=== PATIENT | female | born 1975 | race African-American/Black ===

== ENCOUNTER 2025-01-15 11:29 | Outpatient (AMB) | payer OTHER, SELFPAY ==
--- OUTSIDE RECORDS SUMMARY | 2025-01-12 10:40 | XMS_ITS | Encounter Summary ---
Author Organization [facility] Address [address] [place] [address] Phone Care Team Providers Care Design Technician Name Role Phone Andrés Morales Primary Care Provider + Reason for Visit * Reason Comments Follow-up Encounter Details Date Type Department Care Team (Latest Contact Info) Description 01/12/2025 10:40 AM EDT Office Visit [facility] [address] [place] [phone] Nela Connors MD [address] [place] [phone] [email or web address] Thyroid cancer (Primary Dx); Postoperative hypothyroidism Social History Tobacco Use Types Packs/Day Years Used Date Smoking Tobacco: Never Passive Smoke Exposure: Past Smokeless Tobacco: Never Alcohol Use Standard Drinks/Week Comments Not Currently 0 (1 standard drink = 0.6 oz pur e alcohol) Education Answer Date Recorded Are you interested in more education? Not on monika e 07/28/2022 Are you concerned about learning? Not on file 07/28/2022 No 07/28/2022 No 07/28/2022 Digital Access Answer Date Recorded No 08/21/2022 No 08/21/2022 No 08/21/2022 Reliable internet access at home? Not on file 08/21/2022 Device with a working camera? Not on file Comments Unknown Sex and Gender Information Value Date Recorded Sex Assigned at Not on file Legal Sex Female 1:21 PM EST Gender Identity Not on file Sexual Orientation Not on file documented as of this encounter Last Filed Vital Signs Vital Sign Reading Time Taken Comments Blood Pressure 118/72 01/12/2025 10:48 AM EDT Pulse 83 01/12/2025 10:48 AM EDT Temperature - - Respiratory Rate - - Oxygen Saturation 99% 01/12/2025 10:48 AM EDT Inhaled Oxygen Concentration - - Weight 113.9 kg (251 lb) 01/12/2025 10:48 AM EDT Height 160 cm (5' 2.99 ) 01/12/2025 10:48 AM EDT Body Mass Index 44.47 01/12/2025 10:48 AM EDT documented in this encounter Plan of Treatment Upcoming Encounters Date Type Department Care Team (Late st Contact Info) Description 07/21/2025 10:40 AM EDT Office Visit [facility] [address] [place] [address] [place] [address] Nela Connors MD [address] [place] [phone] [email or web address] documented as of this encounter Results * Thyroglobulin, Tumor Marker (01/12/2025 11:51 AM EDT) THYROGLOBULIN 0.2 < or = 33 ng/mL [facility] THYROGLOBULIN AB <1.8 <1.8 IU/mL [facility] THYROGLOBULIN INTRP SEE NOTE [facility] Comment: (NOTE) Thyroglobulin (Tg) reference intervals are for patients with an intact thyroid and not for patients who have had surgery for thyroid cancer. Tg reference intervals in patients that have undergone thyroidectomy or any treatment for follicular thyroid cancer are dependent on the residual mass of the thyroid tissue after surgery. Tg results, regardless of concentration, should not be interpreted as absolute evidence for the presence or absence of papillary or follicular thyroid cancer. This result needs to be interpreted in the context of the clinical evaluation. ADDITIONAL INFORMATION PLEASE NOTE: The given cutoff of <1.8 IU/mL is for the detection of potential thyroglobulin antibody (TgAb) interference in thyroglobulin immunoassays. A thyroglobulin antibody (TgAb) reference cutoff of <4.0 IU/mL may be more suitable for the evaluation of autoimmune thyroiditis. The thyroglobulin and thyroglobulin antibody testing methods are immunoenzymatic assays manufactured by [employer] and performed on the [employer] DXI 800. Values obtained from different assay methods or kits may be different and cannot be used interchangeably. The results cannot be interpreted as absolute evidence for the presence or absence of malignant disease. Blood 01/12/2025 11:5 1 AM EDT 01/12/2025 11:58 AM EDT Nela Connors MD LAB BLOOD ORDERABLES Final Res ult Performing Organization Address [facility] de Phone Number [facility] [address] [place] [address] * Thyroglobulin antibody (01/12/2025 11:51 AM EDT) THYROGLOBULIN ANTIBODY, S <1.8 <4.0 IU/mL [facility] Comment: (NOTE) ADDITIONAL INFORMATION PLEASE NOTE: The given thyroglobulin antibody (TgAb) reference cutoff of <4.0 IU/mL is for the evaluation of autoimmune thyroiditis. A cutoff of <1.8 IU/mL may be more suitable for the detection of potential thyroglobulin antibody (TgAb) interference in thyroglobulin immunoassays. The thyroglobulin antibody testing method is an immunoenzymatic assay manufactured by [employer] and performed on the [employer] DXI 800. Values obtained from different assay methods or kits may be different and cannot be used interchangeably. The results cannot be interpreted as absolute evidence for the presence or absence of malignant disease. Blood 01/12/2025 11:5 1 AM EDT 01/12/2025 11:58 AM EDT Nela Connors MD LAB BLOOD ORDERABLES Final Res ult Performing Organization Address [facility]/State/ZIP Co de Phone Number [facility] [address] [place] [address] * (ABNORMAL) TSH with reflex (01/12/2025 11:51 AM EDT) TSH 0.17(L) 0.27 - 4.20 uIU/mL [facility] Blood 01/12/2025 11:5 1 AM EDT 01/12/2025 11:58 AM EDT us Nela Connors MD LAB BLOOD ORDERABLES Final Res ult [facility] [address] [place] [address] documented in this encounter Visit Diagnoses Diagnosis Thyroid cancer- Primary Malignant neoplasm of thyroid gland Postoperative hypothyroidism Postsurgical hypothyroidism documented in this encounter Care Teams Design Technician Relationship Specialty Start Date End Date Andrés Morales PA [address] [place] [address] [email or web address] PCP - General 06/01/22 documented as of this encounter Additional Source Comments The information contained in this document represents components of the legal health record. It is not the complete legal health record.[facility]
--- OUTSIDE RECORDS SUMMARY | 2025-01-12 11:24 | XMS_ITS | Encounter Summary ---
Author Organization [facility] Address [address] [place] [address] Phone Care Team Providers Care School Secretary Name Role Phone Andrés Morales Primary Care Provider + Encounter Details Date Type Department Care Team (Latest Contact Info) Description 01/12/2025 11:24 AM EDT - 01/12/2025 11:59 PM EDT Hospital Encounter [facility] [address] [place] [address] [place] [address] Nela Connors MD [address] [place] [phone] [email or web address] Discharge Disposition: Home or Self Care Social History Tobacco Use Types Packs/Day Years [...] on file documented as of this encounter Medications at Time of Discharge apixaban (ELIQUIS) 5 mg tablet Take 5 mg by mouth 2 (two) times a day. 01/01/2025 levothyroxine (SYNTHROID, LEVOTHROID) 200 MCG tabletIndications:Po stoperative hypothyroidism TAKE 1 TAB ORALLY 5 DAYS/WEEK, 1/2 TABLET ON SAT/SUN, OR DIRECTED 90 tablet 1 09/25/2024 therapeutic multivitamin tablet Take 1 tablet by mouth daily. documented as of this encounter Plan of Treatment Upcoming Encounters Date Type Department Care Team (Late st Contact Info) Description 07/21/2025 10:40 AM EDT Office Visit [facility] [address] [place] [phone] Nela Connors MD [address] [place] [phone] [email or web address] documented as of this encounter Procedures Procedure Name Priority Date/Time Associated Diagnosis Comments THYROGLOBULIN ANTIBODY Routine 01/12/2025 11:51 AM EDT Thyroid cancer TSH WITH REFLEX Routine 01/12/2025 11:51 AM EDT Postoperative hypothyroidism THYROGLOBULIN, TUMOR MARKER Routine 01/12/2025 11:51 AM EDT Thyroid cancer FREE T4 Routine 01/12/2025 11:51 AM EDT documented in this encounter Results * (ABNORMAL) Free T4 (01/12/2025 11:51 AM EDT) FREE T4 1.9(H) 0.9 - 1.7 ng/dL [facility] 01/12/2025 11:5 1 AM EDT 01/12/2025 11:58 AM EDT us Nela Connors MD LAB BLOOD ORDERABLES Final Res ult [facility] [address] [place] [address] * (ABNORMAL) TSH with reflex (01/12/2025 11:51 AM EDT) TSH 0.17(L) 0.27 - 4.20 uIU/mL [facility] Blood 01/12/2025 11:5 1 AM EDT 01/12/2025 11:58 AM EDT Nela Connors MD LAB BLOOD ORDERABLES Final Res ult Performing Organization Address [facility]/ZIP Co de Phone Number [facility] [address] [place] [address] * Thyroglobulin antibody (01/12/2025 11:51 AM EDT) THYROGLOBULIN ANTIBODY, S <1.8 <4.0 IU/mL [facility] Comment: (NOTE) ADDITIONAL INFORMATION PLEASE NOTE: The given thyroglobulin antibody (TgAb) reference cutoff of <4.0 IU/mL is for the evaluation of autoimmune thyroiditis. A cutoff of <1.8 IU/mL may be more suitable for the detection of potential thyroglobulin antibody (TgAb) interference in thyroglobulin immunoassays. The thyroglobulin antibody testing method is an immunoenzymatic assay manufactured by [employer] and performed on the [employer] DXI 800. Values obtained from different assay methods or kits may be different and cannot be used interchangeably. The results cannot be interpreted as absolute evidence for the presence or absence of malignant disease. Blood 01/12/2025 11:5 1 AM EDT 01/12/2025 11:58 AM EDT Nela Connors MD LAB BLOOD ORDERABLES Final Res ult Performing Organization Address City/[facility]/ZIP Co de Phone Number [facility] [address] [place] [address] * Thyroglobulin, Tumor Marker (01/12/2025 11:51 AM EDT) THYROGLOBULIN 0.2 < or = 33 ng/mL [facility] [place] THYROGLOBULIN AB <1.8 <1.8 IU/mL [facility] [place] THYROGLOBULIN INTRP SEE NOTE [facility] Comment: (NOTE) Thyroglobulin (Tg) [...] testing methods are immunoenzymatic assays manufactured by [employer] and performed on the [employer] DXI 800. Values obtained from different assay methods or kits may be different and cannot be used interchangeably. The results cannot be interpreted as absolute evidence for the presence or absence of malignant disease. Blood 01/12/2025 11:5 1 AM EDT 01/12/2025 11:58 AM EDT us Nela Connors MD LAB BLOOD ORDERABLES Final Res ult [facility] [place] [address] [place] [address] documented in this encounter Visit Diagnoses Diagnosis Thyroid cancer Malignant neoplasm of thyroid gland Postoperative hypothyroidism Postsurgical hypothyroidism documented in this encounter Care Teams School Secretary Relationship Specialty Start Date End Date Andrés Morales PA NPI: [id number] [place] [phone] [email or web address] PCP - General 06/01/22 documented as of this encounter Additional Source Comments The information contained in this document represents components of the legal health record. It is not the complete legal health record.[facility]
--- NOTE | 2025-01-15 11:39 | MHC.OFFVIS ---
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 Patient was referred by [facility] 09/16/24 at their visit they discussed that her lower back pain might be due to obesity. At today's visit she states that for the past five years she has lower back pain that radiates into the right hip. No numbness or tingling to report. She states she has tried physical therapy but little to no relief. Allergies No Known Allergies Allergy (Verified 01/15/25 11:42) Medication List - Last Reconciled 01/15/25 by Lori Cadena MD levothyroxine mcg PO HPI Comments Details: Patient referred from [facility]. She has history of thyroid cancer with local metastasis, diagnosed 2008. Underwent total thyroidectomy and bilateral cervical lymph node dissection. Recurrent disease in 2012 again undergoing bilateral neck dissection. Appears to have been in remission. [facility] notes indicated L5-S1 disease but I do not have records of previous imaging. History of PE, just round last month 12/22/24. Was put on Eliquis for 1 month, now off it. Lumbar x-rays done today showed mild disc space narrowing at L4-5 and L5-S1. Chronic back pain at least 5 years. More right side. Not to legs. No numbness. Has tried medications NSAIDs, muscle relaxors, narcotics. 2 years ago, it did go down right leg with severe pain. Improved with rest. No MRI. No injections. No PT for the back pain. Has a separate right knee pain. Ongoing PT for the knee pain. 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 Review of Systems Const All systems reviewed & are unremarkable except as noted in HPI and below Physical Exam Exam Exam: Constitutional: Patient appears to be in no acute distress, well nourished and well developed. Patient was appropriately conversant and oriented. Good historian. MSK: No specific abnormalities found on inspection of the spine and all extremities. Tender on right SI joint. Lumbar ROM was full. Bilateral hip, knee and ankle ROM WNL. No ligamentous laxity or crepitance. No increased effusion. Straight-leg raising test negative. FABERE test negative. Strength is 5/5 in all muscle groups tested. No increased tone noted. Neurological: Neurologic examination of the upper and lower extremities was nonfocal with intact sensation, muscle stretch reflexes and without focal motor deficits . Farah?s negative bilaterally. Babinski was down going bilaterally. Clonus was negative. Gait is antalgic without loss of balance. Vital Signs: BMI result Body Mass Index 44.3 Results Reviewed Results Reviewed: I independently reviewed the results of the following: Lumbar x-rays as above I reviewed records from the following: PCP Assessment & Plan Assessment & Plan (1) Lumbar degenerative disc disease: Code(s): M51.369 - Other intervertebral disc degeneration, lumbar region without mention of lumbar back pain or lower extremity pain Category: Medical Qualifiers: Disc-related pain type: discogenic back pain and lower extremity pain Qualified Code(s): M51.362 - Other intervertebral disc degeneration, lumbar region with discogenic back pain and lower extremity pain Plan Chronic lower back pain, right-sided, with some radiation down the leg. X-rays today show decreased disc spaces L4-5 and L5-S1. Await official reading. She has not had any other treatment for back pain in the past. We will start with physical therapy. We might need further imaging such as MRI, or in injections in the future, if not improved with PT. Assessment and plan discussed with patient, and patient was agreeable. All questions were answered thoroughly. Follow up 2 months. She has a separate right knee issue, currently undergoing PT. We can schedule her under Orthopedics to evaluate further. Lori Cadena MD, FRANCIA Board Certified, [place] [employer] and Rehabilitation (ABPMR) Board Certified, [place] Board [employer] Electrodiagnostic [employer] (ABEM) Orders: Orders PT Evaluation and Treatment Today M51.369 - Other intervertebral disc degeneration, lumbar region without mention of lumbar back pain or lower extremity pain XR lumbar spine 2-3V Today M54.9 - Dorsalgia, unspecified Coding Level of Care Code New Pt Level 4 (95241) Diagnoses Degeneration of intervertebral disc of lumbar region with discogenic back pain and lower extremity pain M51.362 Disc-related pain type: discogenic back pain and lower extremity pain
[2025-01-15 11:42] VITALS: BMI 44.3
== END 2025-01-15 12:06 | disposition home or self-care (01) ==
LOC: HO.HOS 11:29
PROVIDERS: PCP Dentist General Practice; Visit Provider Physical Medicine & Rehabilitation
DX: M51.362 Other intervertebral disc degeneration, lumbar region with discogenic back pain and lower extremity pain (principal)
CPT/HCPCS: 99203

== ENCOUNTER → 2025-01-15 11:33 | Outpatient (BNV) | payer OTHER, SELFPAY | PROVIDERS: Visit Provider Radiology Diagnostic Radiology | DX: M47.817 Spondylosis without myelopathy or radiculopathy, lumbosacral region (principal) | CPT/HCPCS: 72100 ==

== ENCOUNTER 2025-01-15 14:51 | Outpatient (REF) | payer OTHER, SELFPAY ==
--- NOTE | ~2025-01-15 | XR_ITS ---
EXAMINATION: XR LUMBOSACRAL SPINE CLINICAL INFORMATION: M54.9 - Dorsalgia, unspecified COMPARISON: None available. TECHNIQUE: AP and lateral views FINDINGS: Mild levoconvex curvature. Multilevel small marginal osteophyte formation and endplate sclerosis and decreased intervertebral disc height pronounced at L5-S1. No acute cortical disruption or gross malalignment. No lytic or blastic lesions. XR/XR lumbar spine 2-3V IMPRESSION: Multilevel spondylosis pronounced at L5-S1. Electronically signed by: Marco Antonio Skelton MD 01/15/2025 11:48 AM EDT
--- OUTSIDE RECORDS SUMMARY | 2025-01-15 13:55 | XMS_ITS | Patient Health Record ---
Author Organization [facility] Address [address] [place] [id number] Care Team Providers Care Credit Collections Rep Name Role Phone Antoine Leone Primary Care Provider Reason For Referral No Information Medications Medication SIG (Take, Route, Fr equency, Duration) Notes Start Date End Date Status Synthroid 175 MCG 1 tablet on an empty stomach in the morning Orally Once a day; Duration: 30 days 08/24/2011 Active Plan Of Treatment No Information Insurance Providers Payer Name Payer Address Payer Phone Subscriber Number Group Number Insured Name Patient Relationship to Insured Coverage Start Date Coverage End Date [facility] [address] [place] [address] [phone] [id number] Nasra Hubbard Self - patient is the insured
--- OUTSIDE RECORDS SUMMARY | 2025-01-15 13:55 | XMS_ITS | Clinical Summary ---
Author Organization [facility] Address [address] [place] [address] Care Team Providers Care Superior Court Clerk Name Role Phone Andrés Morales Primary Care Provider [phone] Source Comments PLEASE NOTE, if this patient is a minor, it may be UNLAWFUL to discuss sensitive information that is contained in these records (such as FAMILY PLANNING, MENTAL HEALTH or SUBSTANCE ABUSE) with the minor patient's parent or other person without the patient's specific authorization.[facility] Allergies Active Allergy Reactions Criticality Noted Date Comments Aspirin Other (See Comments) 06/21/2021 Aspirin, Buffered Other (See Comments) High 03/07/20 17 Nose bleed Medications levothyroxine 200 mcg tablet Take 1 Tablet by mouth once daily 60 Tablet 1 06/07/19 23 Active phentermine 37.5 mg capsuleIndications :Class 3 severe obesity due to excess calories with serious comorbidity and body mass index (BMI) of 40.0 to 44.9 in adult Take 1 Capsule by mouth every morning 30 Capsule 2 05/29/19 25 Active ondansetron ODT (ZOFRAN-ODT) 4 mg disintegrating tabletIndications: Nausea Take 1 Tablet by mouth every 8 (eight) hours as needed for nausea. 30 Tablet 2 10/01/19 25 Active tirzepatide, weight loss, (ZEPBOUND) 2.5 mg/0.5 mL pnijIndications:ob structive sleep apnea syndrome,weight loss management for obese patient (bmi >= 30) Inject 2.5 mg into the skin once a week Indications: sleep apnea due to airway obstruction, weight loss management for a person with obesity. 2 mL 2 10/29/19 25 Active cetirizine (ZYRTEC) 10 mg tabletIndications: Environmental allergies Take 1 Tablet by mouth once daily. 30 Tablet 10/29/19 25 Active apixaban (ELIQUIS) 5 mg tab Take 1 Tablet by mouth 2 (two) times daily. 60 Tablet 5 01/02/20 25 Active diclofenac sodium (VOLTAREN) [address] tabletIndications: Degenerative disc disease at L5-S1 level TAKE 1 TABLET BY MOUTH TWICE A DAY 60 Tablet 1 10/27/19 25 025 Discontin ued(Thera py completed /Not needed) Active Problems Patient Care Coordination No te Formatting of this note migh t be different from the original. 43 y/o female with Post-Operative Hypothyroidism here today for lab results review. Followed by Nela Connors MD at [facility], last apt 08/20/18 with 6 mo f/u instructed. Current regimen: Levothyroxine 175 mcg, 1 tab PO Mon-Sat, then 1.5 tab PO Sat&Sun. Interval Hx: Dx in 2008 with thyroid CA, +Total thryoidectomy 2008 with bilat CLN dissection [facility], +bilat neck dissection [facility]. De León. 05/26/18 - Free T4 2.00 06/25/2018 - Last encounter w/ Previous endo [facility], Neck US negative 08/20/18 - Transfer endo care to Nela Connors MD at [facility], pt c/o recent weight gain, decreased exercise motivation, eats more sweets and large portions, lack of energy, occasional SOB w/ palpitations and occasional anxiety. Labs: TSH w/ Reflex FT4 0.04, free T4 2.99; thyroglobin antibody serum <1.8, thyroglobulin reflex immunosay 0.1, 10/16/18 - TSH 0.07, T4 Total 14.4; patient c/o hair loss given ref to derm. Problem Noted Date Diagnosed Date Recurrent pulmonary embolism 01/01/2025 Degenerative disc disease at L5-S1 level 025 Post-operative hypothyroidism 08/20/2018 Overview (03/17/2019): 2009 - Thyroid CA - locally metastatic PTC 01/31/2009 - total thyroidectomy and bilateral cervical LN dissection, [facility] 04/02/2012 - Recurrent disease w/ bilat neck dissection, [facility] Dr. De León 2013 - Undetectable TG since 2013 during TSH suppression w/ negative TG AB 04/29/2015 - Thyrogen stimulated WBS negative, stim TG 1.0, Current regimen: Levothyroxine 175 mcg, 1 tab PO Mon-Fri, then 1.5 tab PO Sat&Sun. Interval Hx: Dx in 2008 with thyroid CA, +Total thryoidectomy 2008 with bilat CLN dissection [facility], +bilat neck dissection [facility] Dr. De León. 05/26/18 - Free T4 2.00 06/25/2018 - Last encounter w/ Previous endo [facility], Neck US negative 08/20/18 - Transfer endo care to Nela Connors MD at [facility], last apt on record with 6 mo f/u instructed. Labs: TSH w/ Reflex FT4 0.04, free T4 2.99; thyroglobin antibody serum <1.8, thyroglobulin reflex immunosay 0.1, 10/16/18 - TSH 0.07, T4 Total 14.4Notes: clinically euthyroid. TSH NA. Current regimen: Levothyroxine 175 mcg, 1 tab PO Mon-Fri, then 1.5 tab PO Sat&Sun. Other: pt c/o recent weight gain, decreased exercise motivation, eats more sweets and large portions, lack of energy, occasional SOB w/ palpitations and occasional anxiety, hair loss given ref to derm. Obstructive sleep apnea on CPAP 08/20/2018 Overview (03/17/2019): Per [facility] encounter note, on CPAP since 2014 Personal history of pulmonary embolism 9 Overview (03/17/2019): Per [facility] encounter note: H/o blood clots 10/[address], on coumadin 2 M Status post total thyroidect kyaw with bilat Cervical LN dissection 200805/26/2018 Overview (03/17/2019): 01/31/2009 - Total thyroidectomy with bilateral neck dissection in [facility] 04/02/2012 - bilateral neck dissection at [facility] with Dr. De León Acquired hypothyroidism 03/05/2017 History of thyroid cancer 03/05/2017 Overview (03/17/2019): Papillary thyroid carcinoma Followed by [facility] as of 08/20/18 - S/p total thyroidectomy in 2008. Note details below: 2009 - Thyroid CA - locally metastatic PTC 01/31/2009 - total thyroidectomy and bilateral cervical LN dissection, [facility] 04/02/2012 - Recurrent disease w/ bilat neck dissection, [facility] Dr. De León 2013 - Undetectable TG since 2013 during TSH suppression w/ negative TG AB 04/29/2015 - Thyrogen stimulated WBS negative, stim TG 1.0, 05/2016 - Neck US negative Impaired glucose regulation 03/05/2017 Dyspnea 03/05/2017 Resolved Problems Problem Noted Date Diagnosed Date Resolved Date Personal history of malignan t neoplasm of thyroid 200808/20/2018 05/29/2024 History of pulmonary embolism 03/05/2017 05/29/2024 Encounters Date Type Department Care Team Description 01/01/2025 11:40 AM EDT Office Visit [facility] [address] [place] [address] Alphonso Antunez FNP 11/11/2024 11:20 AM EDT Office Visit [facility] [address] [place] [address] Inocente Chaparro MD 11/05/2024 3:40 PM EDT Office Visit [facility] [id number] [place] [address] Judi Landry DDS 10/28/2024 3:20 PM EDT Office Visit [facility] [address] [place] [address] Andrés Morales PA 10/22/2024 Interim Notes [address] [address] Johnna Maria MA 10/20/2024 Interim Notes [address] [address] Johnna Maria MA from Last 3 Months Immunizations Immunization Administration Dates Next Due Influenza, Whole 01/18/2011 TDAP 03/07/2017 Td (adult) unspecified 02/22/2016,05/11/2010,09/2005 Td (adult),2 Lf tetanus toxo id (TDVAX), preservative free 02/22/2016,02/22/2016 Family History Medical History Relation Name Comments No Significant Past Medical History Daughter Diabetes Father Hypertension Father Diabetes Mother Hypertension Mother Relation Name Status Comments Daughter Alive Father Alive Mother Alive Social History Tobacco Use Types Packs/Day Years Used Date Smoking Tobacco: Never Passive Smoke Exposure: Never Smokeless Tobacco: Never Tobacco Cessation:Counseling Given: Not Answered Alcohol Use Standard Drinks/Week Comments Yes 0 (1 standard drink = 0.6 oz pur e alcohol) occassionally Social Connections Answer Date Recorded Connectedness 0 08/09/2022 Financial Resource Strain Answer Date R ecorded Financial Resource Strain 0 2022 Stress Answer Date Recorded Stress 0 08/09/2022 Physical Activity Answer Date Recorded Physical Activity 0 11/23/2018 Food Insecurity Answer Date Recorded Food 0 08/09/2022 Transportation Needs Answer Date Record ed Transportation 0 08/09/2022 Housing Stability Answer Date Recorded Housing 0 08/09/2022 Safety and Environment Answer Date Justo rded How often does anyone, inclu ding family and friends, physically hurt you? 1 05/29/2024 Utilities Answer Date Recorded Utilities 0 08/09/2022 Employment Answer Date Recorded Stress 0 06/21/2021 Comments No Sex and Gender Information Value Date Recorded Sex Assigned at Female 03/07/2017 6:04 AM PST Legal Sex Female 7:49 AM PDT Gender Identity Female 03/07/2017 6:04 AM PST Sexual Orientation Straight 03/07/2017 6: 04 AM PST Last Filed Vital Signs Vital Sign Reading Time Taken Comments Blood Pressure 144/86 01/01/2025 12:19 PM EDT Pulse 94 01/01/2025 12:19 PM EDT Temperature 36.7 C (98.1 F) 01/01/2025 12:19 PM EDT Respiratory Rate 16 01/01/2025 12:19 PM EDT Oxygen Saturation 98% 01/01/2025 12:19 PM EDT Inhaled Oxygen Concentration - - Weight 114.3 kg (252 lb) 01/01/2025 12:19 PM EDT Height 160 cm (5' 3 ) 01/01/2025 12:19 PM EDT Body Mass Index 44.64 01/01/2025 12:19 PM EDT Plan of Treatment Upcoming Encounters Date Type Department Care Team (Late st Contact Info) Description 03/26/2025 9:40 AM EST Office Visit [facility] [address] [place] [address] JarquinAngeli marteiman [address] [place] [address] 05/10/2025 11:00 AM EST Office Visit [facility] [address] [place] [phone] Page Pierce [address] [place] [address] Health Maintenance Due Date Last Done Comments Dental FMX/Pano 1977 HPV Screening (self-collect) 1977 HPV Screening 1977 Imm-Hepatitis B (1 of 3 - 19 + 3-dose series) 1996 CT Colonography 2022 FIT/gFOBT 2022 Fecal DNA 2022 Flexible Sigmoidoscopy 2022 [id number] ( season) 2024 Imm-Influenza (#1) 2024 05/26/2018, 01/18/2011 Lipid Screening 12/19/2024 12/19/2021, 07/31, 03/12/2017 Annual Wellness (Adult): Indicated (All Coverage) 05/29/2025 05/29/2024, 08/09/2022, 06/21/2021, Additional history exists Anxiety Screening 05/29/2025 05/29/2024 Relationship Safety Screening/Counseling 05/29/2025 05/29/2024, 08/09/2022, 06/21/2021, Additional history exists Breast Cancer Screening (Mammogram) 06/10/2025 06/10/2024, 04/27/2022, 04/17/2021, Additional history exists Diabetes Screening 09/21/2025 09/21/2024, 0 05/13/2024, 08/21/2022, Additional history exists Dental BW 09/26/2025 09/24/2024, 03/02, 08/07/2023, Additional history exists Dental Examination 09/26/2025 09/24/2024, 1 05/27/2023, 08/07/2023, Additional history exists Dental Perio Charting 09/26/2025 09/24/2024 , 08/07/2023, 04/12/2022, Additional history exists Dental Prophy 09/26/2025 09/24/2024, 03/02, 08/07/2023, Additional history exists Hypertension Screening (#1) 01/01/2026 Tobacco Screening 01/01/2026 01/01/2025 Imm-DTaP/Tdap/Td (2 - Td or Tdap) 03/07/2027 03/07/2017, 02/22/2016, 02/22/2016, Additional history exists Pap Smear 11/12/2027 11/11/2024, 05/30, 05/26/2018 (Managed by Outside Provider) Cervical Cancer Screening 11/11/2029 Pap + HPV 11/11/2029 11/11/2024, 06/15/2021 Colonoscopy 09/04/2034 09/04/2024 Colorectal Cancer Screening 09/04/2034 HIV Screening Completed 08/23/2020 Hepatitis C Screening Completed 08/23/2020 Alcohol and Drug Screen Completed 05/29/19, 08/09/2022, 08/09/2022, Additional history exists Depression Annual Screen Completed 05/29/2024, 05/03 Cervical Ablation/Cold-Knife Conization Discontinued Cervical Cryotherapy Discontinued Colposcopy Discontinued Excision/Leep Discontinued HPV Genotyping Discontinued Vaginal Pap Discontinued Vulvoscopy Discontinued Procedures Procedure Name Priority Date/Time Associated Diagnosis Comments LAB SCANNED DOCUMENT 01/12/2025 3:00 AM EDT THINPREP IMAGING PAP, HPV MRNA E6/E7 RFLEX HPV 16,18/45 CT/NG Routine 11/11/2024 8:39 AM EDT Screening for HPV (human papillomavirus) OFFICE VISIT OBSERVATION NO OTHER SRVC PERFORMED Routine 11/05/2024 3:40 PM EDT Encounter for dental examination CASE PRESENTATION SUBS DTL & EXTENSIVE TX PLN Routine 11/05/2024 3:40 PM EDT Encounter for dental examination MEDICATIONS SCANNED DOCUMENT 10/22/2024 3:00 AM EDT MEDICATIONS SCANNED DOCUMENT 10/21/2024 3:00 AM EDT COMP PERIODONTAL EVALUATION - NEW/EST PATIENT Routine 09/24/2024 9:00 AM EDT Encounter for dental examination and cleaning without abnormal findings BITEWINGS - FOUR RADIOGRAPHIC IMAGES Routine 09/24/2024 9:00 AM EDT Encounter for dental examination and cleaning without abnormal findings PROPHYLAXIS - ADULT Routine 09/24/2024 9 :00 AM EDT Encounter for dental examination and cleaning without abnormal findings PERIODIC ORAL EVALUATION ESTABLISHED PATIENT Routine 09/24/2024 9:00 AM EDT Encounter for dental examination and cleaning without abnormal findings HISTORIC COLONOSCOPY 09/04/2024 3:00 AM EDT HISTORIC MAMMOGRAM 04/27/2022 3: 00 AM EST HGBA1C W/MPG Routine 12/19/2021 10:16 AM EDT Routine adult health maintenance Hypercholesterolemi a Impaired glucose regulation LIPID PANEL Routine 12/19/2021 10:16 AM EDT Routine adult health maintenance Hypercholesterolemi a HIV 1/2 AG & AB W/RFLX (4TH GEN) Routine 08/23/2020 10:01 AM EDT Routine adult health maintenance HEPATITIS C AB W/RFLX HCV RNA, QT, RT PCR Routine 08/23/2020 10:01 AM EDT Routine adult health maintenance from Last 3 Months or Most Recently Relevant to Health Maintenance Results * LAB SCANNED DOCUMENT (01/12/2025 3:00 AM EDT) 01/12/2025 3:00 AM EDT Andrés PLUMMER SCAN LAB Final Result * THINPREP IMAGING PAP, HPV MRNA E6/E7 RFLEX HPV 16,18/45 CT/NG Cervical Swab Routine (11/11/2024 8:39 AM EDT) CLINICAL INFORMATION None given 5 4:29 PM EDT [facility] LMP NONE GIVEN 5 4:29 PM EDT [facility] PREV. PAP NONE GIVEN 5 4:29 PM EDT [facility] PREV. BX NONE GIVEN 5 4:29 PM EDT [facility] SOURCE Cervix 5 4:29 PM EDT [facility] STATEMENT OF ADEQUACY Satisfactory for evaluation. Endocervical/tra nsformation zone component absent. 5 4:29 PM EDT [facility] INTERPRETATION/RES ULT Cytology Results: Negative for intraepithelial lesion or malignancy. 5 4:29 PM EDT [facility] COMMENT This Pap test has been evaluated with the ThinPrep(R) Imaging System. 5 4:29 PM EDT [facility] DIRECTOR OF RETAIL ANALYTICS , CT(ASCP) CT screening location: [address] [address] 5 4:29 PM EDT [facility] REVIEW DIRECTOR OF RETAIL ANALYTICS [facility], [place](ASCP) CT screening location: [address] [address] 5 4:29 PM EDT [facility] HPV MRNA E6/E7 Not Detected Not Detected 5 4:29 PM EDT [facility] CHLAMYDIA TRACHOMATIS RNA, TMA NOT DETECTED NOT DETECTED 5 7:04 PM EDT [facility] NEISSERIA GONORRHOEAE RNA, TMA NOT DETECTED NOT DETECTED 5 7:04 PM EDT [facility] Swab Cervix uteri structure / Unknown 11/11/2024 8:39 AM EDT 11/12/2024 7:48 AM EDT Narrative [facility] - 11/13/2024 4:30 PM EDT Methodology: Consultant In Ergonomics And Safety-Mediated Amplification . This assay detects E6/E7 viral messenger RNA (mRNA) from 14 high-risk HPV types (16,18,31,33,35,39,45,51,52,56,58,59,66,68). . . Cervical sources are required for HPV testing. If a vaginal source from a patient who has had a total hysterectomy with removal of cervix was submitted, please contact the testing laboratory for alternative testing options. . For additional information, please refer to http://[employer]/faq/JEJ373a4 (This link if provided for information/ educational purposes only.) EXPLANATORY NOTE: . The Pap is a screening test for cervical cancer. It is not a diagnostic test and is subject to false negative and false positive results. It is most reliable when a satisfactory sample, regularly obtained, is submitted with relevant clinical findings and history, and when the Pap result is evaluated along with historic and current clinical information. . The analytical performance characteristics of this assay, when used to test SurePath(TM) specimens have been determined by [employer]. The modifications have not been cleared or approved by the FDA. This assay has been validated pursuant to the CLIA regulations and is used for clinical purposes. . For additional information, please refer to https://[employer]/faq/MVZ426 (This link is being provided for information/ educational purposes only.) . Inocente Chaparro MD LAB - PATHOLOGY AND CYTOLOGY AM BULATORY Final Result [facility] [address] [address], [facility] [address] [address] * MEDICATIONS SCANNED DOCUMENT (10/22/2024 3:00 AM EDT) Only the most recent of2 resultswithin the time period is included. 10/22/2024 3:00 AM EDT us Andrés PLUMMER SCAN MEDS OTHER ORDERS Final R esult * HISTORIC COLONOSCOPY (09/04/2024 3:00 AM EDT) 09/04/2024 3:00 AM EDT Alphonso Antunez PASTEURIZER PROCEDURES Final Res ult * HISTORIC MAMMOGRAM (04/27/2022 3:00 AM EST) 04/27/2022 3:00 AM EST us Andrés PLUMMER IMG MAMMO Edited Result - Final * HGBA1C W/MPG (12/19/2021 10:16 AM EDT) HEMOGLOBIN A1C 5.5 <5.7 % of total Hgb [facility] Comment: For the purpose of screening for the presence of diabetes: <5.7% Consistent with the absence of diabetes 5.7-6.4% Consistent with increased risk for diabetes (prediabetes) > or =6.5% Consistent with diabetes This assay result is consistent with a decreased risk of diabetes. Currently, no consensus exists regarding use of hemoglobin A1c for diagnosis of diabetes in children. According to [place] Diabetes Association (ADA) guidelines, hemoglobin A1c <7.0% represents optimal control in non- diabetic patients. Different metrics may apply to specific patient populations. Standards of Medical Care in Diabetes(ADA). MEAN PLASMA GLUCOSE 119 mg/dL (calc) [facility] Blood Blood / Unknown 12/19/2021 1 0:16 AM EDT 12/19/2021 10:16 AM EDT us Andrés PLUMMER LAB - BLOOD DRAW Final Result [facility] [address] [address], [employer] [facility] [address] [address] * LIPID PANEL (12/19/2021 10:16 AM EDT) CHOLESTEROL, TOTAL 153 <200 mg/dL [facility] HDL CHOLESTEROL 59 > OR = 50 mg/dL [facility] TRIGLYCERIDES 49 <150 mg/dL [facility] LDL-CHOLESTEROL 80 99 mg/dL (calc) [facility] Comment: Reference range: <100 Desirable range <100 mg/dL for primary prevention; <70 mg/dL for patients with CHD or diabetic patients with > or = 2 CHD risk factors. LDL-C is now calculated using the Larissa calculation, which is a validated novel method providing better accuracy than the Friedewald equation in the estimation of LDL-C. Bolivar SS et al. GOYO. 2013;310(19): 9542-7734 (http://[employer].Salsify/faq/BIH318) CHOL/HDLC RATIO 2.6 <5.0 (calc) [facility] NON-HDL CHOLESTEROL 94 <130 mg/dL (calc) [facility] Comment: For patients with diabetes plus 1 major ASCVD risk factor, treating to a non-HDL-C goal of <100 mg/dL (LDL-C of <70 mg/dL) is considered a therapeutic option. Blood Blood / Unknown 12/19/2021 1 0:16 AM EDT 12/19/2021 10:16 AM EDT Andrés PLUMMER LAB - BLOOD DRAW Final Result [facility] [address] [address], [facility] [address] [address] * HEPATITIS C AB W/RFLX HCV RNA, QT, RT PCR (08/23/2020 10:01 AM EDT) HEPATITIS C ANTIBODY NON-REACT ANGELICA NON-REACT ANGELICA [facility] SIGNAL TO CUT-OFF 0.01 <1.00 [facility] Comment: HCV antibody was non-reactive. There is no laboratory evidence of HCV infection. In most cases, no further action is required. However, if recent HCV exposure is suspected, a test for HCV RNA (test code 66190) is suggested. For additional information please refer to http://[employer]/faq/LND00c2 (This link is being provided for informational/ educational purposes only.) Blood Blood / Unknown 08/23/2020 1 0:01 AM EDT 08/23/2020 10:02 AM EDT Narrative [facility] - 08/23/2020 9:40 PM EDT FASTING:NO Andrés PLUMMER LAB - BLOOD DRAW Final Result Performing Organization Address [facility]/ZIP Co de Phone Number [facility] [address] [address], Quantitative Medicine [facility] [address],[facility] [address] * HIV 1/2 AG & AB W/RFLX (4TH GEN) (08/23/2020 10:01 AM EDT) [facility] HIV AG/AB, 4TH GEN NON-REAC TIVE NON-REAC TIVE [employer] [facility] Comment: HIV-1 antigen and HIV-1/HIV-2 antibodies were not detected. There is no laboratory evidence of HIV infection. PLEASE NOTE: This information has been disclosed to you from records whose confidentiality may be protected by state law. If your state requires such protection, then the state law prohibits you from making any further disclosure of the information without the specific written consent of the person to whom it pertains, or as otherwise permitted by law. A general authorization for the release of medical or other information is NOT sufficient for this purpose. For additional information please refer to http://education.[employer]/faq/WNO942 (This link is being provided for informational/ educational purposes only.) The performance of this assay has not been clinically validated in patients less than 2 years old. Blood Blood / Unknown 08/23/2020 1 0:01 AM EDT 08/23/2020 10:02 AM EDT Narrative [facility] - 08/23/2020 10:04 PM EDT FASTING:NO us Andrés PLUMMER LAB - BLOOD DRAW Final Result Performing Organization Address [facility]/ZIP Co de Phone Number [facility] [address] [address], Quantitative Medicine [facility] [address] [address] from Last 3 Months or Most Recently Relevant to Health Maintenance Insurance [employer] Member Subscriber Plan / Payer (Ef fective 2017-Present) Name:Nasra Hubbard Relation to Subscriber:Self Name:Nasra Hubbard Payer ID:[id number] Type:Indemnity Address: [facility] [address] [place] [address] HEALTH SAF[employer]Y NET DENTAL Care Teams [address] Clerk Relationship Specialty Start Date End Date Andrés Morales PA [address] [place] [address] PCP - General Internal Medicine 01/04/17
--- OUTSIDE RECORDS SUMMARY | 2025-01-15 13:56 | XMS_ITS | Clinical Summary ---
Author Organization [facility] [address] [facility] [address] Address [address] [place] [address] Phone Care Team Providers Care Hide Puller Name Role Phone Alphonso Antunez NP Primary Care Provider [phone] Allergies Active Allergy Reactions Criticality Noted Date Comments Aspirin Other Medium 04/23/2017 Nose bleed Medications levothyroxine (SYNTHROID, LEVOTHROID) 200 mcg tablet TAKE 2 TABLETS BY MOUTH 1 DAY A WEEK AND 1 TABLET 6 DAYS A WEEK 1 Active polyethylene glycol (Golytely) 236-22.74-6.74 -5.86 gram solution Take 4L by mouth once for one dose. May substitue any PEG. Starting at 6PM the night before your procedure drink 1 8oz glasses at your own pace until you complete half of the gallon. Finish 2nd half of the gallon 5 hours before your procedure. 4000 mL 5 Active bisacodyL (DULCOLAX) 5 mg EC tablet Take 2 tablets by mouth right before beginning bowel prep. See instructions provided by the office 2 tablet 5 Active zinc gluconate 100 mg tablet Take 1 tablet (100 mg total) by mouth 1 (one) time each day. Active ferrous sulfate 325 mg (65 mg elemental iron) tablet Take 1 tablet (325 mg total) by mouth 1 (one) time each day with breakfast. Active Encounters Date Type Department Care Team Description 01/07/2025 10:[address] [facility] [address] [address] Chidi Drake, CAFE COOK Obstructive sleep apnea on CPAP (Primary Dx); Right knee buckling 01/05/2025 11:00 AM EDT Treatment [address] [address] Chidi Drake, CAFE COOK Obstructive sleep apnea on CPAP (Primary Dx); Right knee buckling 12/29/2024 10:30 AM EDT Treatment [address] [address] Chidi Drake, CAFE COOK Obstructive sleep apnea on CPAP (Primary Dx); Right knee buckling 12/16/2024 11:00 AM EDT Evaluation [address] [address] Nimo Ridley, PT Obstructive sleep apnea on CPAP; Right knee buckling from Last 3 Months Surgical History Surgery Date Site/Laterality Comments THYROIDECTOMY 2008 PROCEDURE: HISTORICAL TOTAL THYROIDECTOMY; COMMENT: s/p thyroid cancer OTHER SURGICAL HISTORY 2012 PROCEDURE: DC BX/EXC LYMPH NODE OPEN SUPERFICIAL; COMMENT: s/p thyroid cancer Medical History Medical History Date Comments Sleep apnea 2014 DX:Sleep apnea History of pulmonary embolus (PE) 2014 DX:History of pulmonary embolus (PE) History of thyroid cancer 2008 DX:His tory of thyroid cancer Microcalcification of right breast on mammogram 04/2021 DX:Microcalcification of rig ht breast on mammogram Anemia Family History Medical History Relation Name Comments Diabetes Father Hypertension Father Diabetes Mother Hypertension Mother Ovarian cancer Mother's side great grandmother Breast cancer Neg Hx Colon cancer Neg Hx Relation Name Status Comments Father Alive Mother Alive Mother's side great grandmother Social History Tobacco Use Types Packs/Day Years Used Date Smoking Tobacco: Never Smokeless Tobacco: Never Alcohol Use Standard Drinks/Week Comments Yes 0 (1 standard drink = 0.6 oz pur e alcohol) Interpersonal Safety Answer Date Record ed Physical Abuse Unrecognized value 09/04/2024 Verbal Abuse Unrecognized value 09/04/2024 Comments No Sex and Gender Information Value Date Recorded Sex Assigned at Female 06/04/2024 11:38 AM EST Legal Sex Female 10:32 AM EST Gender Identity Female 06/04/2024 11:38 AM EST Sexual Orientation Straight 06/04/2024 11 :38 AM EST Obstetrics History Para Term AB IAB SAB Ectopic Multiple Livin g Live Births 1 Last Filed Vital Signs Vital Sign Reading Time Taken Comments Blood Pressure 131/75 09/21/2024 3:23 PM EDT Pulse 78 09/21/2024 3:23 PM EDT Temperature 36.7 C (98.1 F) 09/21/2024 3:23 PM EDT Respiratory Rate 18 09/21/2024 3:23 PM EDT Oxygen Saturation 97% 09/21/2024 3:23 PM EDT Inhaled Oxygen Concentration - - Weight 111 kg (245 lb) 09/21/2024 3:23 PM EDT Height 160 cm (5' 3 ) 09/21/2024 3:23 PM EDT Body Mass Index 43.4 09/21/2024 3:23 PM EDT Plan of Treatment Upcoming Encounters Date Type Department Care Team (Late st Contact Info) Description 01/18/2025 11:00 AM EDT Treatment [address] [address] Nimo Ridley, LETICIA Health Maintenance Due Date Last Done Comments COVID-19 Vaccine (#1) 1982 Hepatitis B Vaccines (1 of 3 - 19+ 3-dose series) 1996 Pneumococcal Vaccine: Pediatrics (0 to 5 Years) and At-Risk Patients (6 to 49 Years) (1 of 2 - PCV) 1996 HIV Screening 03/05/2022 Social Influencers of Health Screening 03/05/2022 Depression Screening 04/01/2024 Cervical Cancer Screening: Pap Smear 06/15/2024 06/15/2021 Influenza Vaccine (#1) 2024 01/18/2011 Breast Cancer Screening 06/10/2026 06/11/19, 04/27/2022, 04/17/2021, Additional history exists Cholesterol Screening (Lipid Panel) 12/19/2026 12/19/2021, 12/19/2021, 08/23/2020 DTaP,Tdap,and Td Vaccines (5 - Td or Tdap) 03/07/2027 03/07/2017, 02/22/2016, 05/11/2010, Additional history exists Colorectal Cancer Screening: Colonoscopy 09/04/2034 09/04/2024 RSV Immunization Adult Patients (1 - 1-dose 75+ series) 2052 Hepatitis C Screening Completed 08/23/2020 HIB Vaccines Aged Out No longer eligi ble based on patient's age to complete this topic HPV Vaccines Aged Out No longer eligi ble based on patient's age to complete this topic Hepatitis A Vaccines Aged Out No long er eligible based on patient's age to complete this topic IPV Vaccines Aged Out No longer eligi ble based on patient's age to complete this topic MMR Vaccines Aged Out No longer eligi ble based on patient's age to complete this topic Meningococcal ACWY Vaccine Aged Out N o longer eligible based on patient's age to complete this topic Meningococcal B Vaccine Aged Out No l onger eligible based on patient's age to complete this topic RSV Immunization Patients Under 20 months Aged Out No longer eligible based on patient's age to complete this topic Varicella Vaccines Aged Out No longer eligible based on patient's age to complete this topic Goals Goal Patient Goal Type Associated Problems Recent Progress Patient-Stated? Author PT LTG - 6 visits General No Nimo Ridley PT Note: Patient reports subjective decrease in R knee pain Patient is able to achieve 120 degrees of R knee flexion Patient is able to achieve 5/5 knee extension strength on R Patient is able to perform 5 sit to stand without UE assistance Patient is independent and compliant with HEP Procedures Procedure Name Priority Date/Time Associated Diagnosis Comments COLONOSCOPY Routine 09/04/2024 1:50 PM EDT Colon cancer screening MG MAMMO DIGITAL SCREENING W THA BILAT Routine 06/10/2024 10:22 AM EDT Encounter for general adult medical examination without abnormal findings PAP SMEAR Routine 06/15/2021 from Last 3 Months or Most Recently Relevant to Health Maintenance Results * COLONOSCOPY Anesthesia - MAC; [facility] ENDOSCOPY (09/04/2024 1:50 PM EDT) Anatomical Region Laterality Modality Other 09/04/2024 1:29 PM EDT Impressions 09/04/2024 1:50 PM EDT - The entire examined colon is normal on direct and retroflexion views. - No specimens collected. Recommendation: - Discharge patient to home. - Resume previous diet. - Continue present medications. - Repeat colonoscopy in 10 years for surveillance. - Return to GI office PRN. Narrative 09/04/2024 1:50 PM EDT [facility] GI Patient Name: Nasra Hubbard Procedure Date: 09/04/2024 1:29 PM Date of : 1975 Age: 49 Room: ROOM 14 Gender: Female Note Status: Finalized Attending MD: Lenin Riddle MD, Procedure Date No Time: 09/04/2024 Procedure: Colonoscopy Indications: Screening for colorectal malignant neoplasm Providers: Lenin Riddle MD Referring MD: Lenin Riddle MD Medicines: Monitored Anesthesia Care Complications: No immediate complications. Estimated Blood Loss: Estimated blood loss: none. Procedure: Pre-Anesthesia Assessment: - ASA Grade Assessment: II - A patient with mild systemic disease. - After reviewing the risks and benefits, the patient was deemed in satisfactory condition to undergo the procedure. After I obtained informed consent, the scope was passed under direct vision. Throughout the procedure, the patient's blood pressure, pulse, and oxygen saturations were monitored continuously.The Colonoscope was introduced through the anus and advanced to the cecum, identified by appendiceal orifice and ileocecal valve. The colonoscopy was performed without difficulty. The patient tolerated the procedure well. The quality of the bowel preparation was good. Findings: The entire examined colon appeared normal on direct and retroflexion views. Procedure Code(s): --- Professional --- G0121, Colorectal cancer screening; colonoscopy on individual not meeting criteria for high risk Diagnosis Code(s): --- Professional --- Z12.11, Encounter for screening for malignant neoplasm of colon CPT copyright 2020 [employer]. All rights reserved. The codes documented in this report are preliminary and upon dental technician instructor review may be revised to meet current compliance requirements. Lenin Riddle MD 09/04/2024 1:50:40 PM This report has been signed electronically.Lenin Riddle MD Number of Addenda: 0 Note Initiated On: 09/04/2024 1:29 PM Scope In: Scope Out: Endoscopy Department at [facility] - [address] [place] [id number] Procedure Note Lenin Riddle MD - 09/04/2024 [facility] GI Patient Name: Nasra Hubbard Procedure Date: 09/04/2024 1:29 PM Date of : 1975 Age: 49 Room: ROOM 14 Gender: Female Note Status: Finalized Attending MD: Lenin Riddle MD, Procedure Date No Time: 09/04/2024 Procedure: Colonoscopy Indications: Screening for colorectal malignant neoplasm Providers: Lenin Riddle MD Referring MD: Lenin Riddle MD Medicines: Monitored Anesthesia Care Complications: No immediate complications. Estimated Blood Loss: Estimated blood loss: none. Procedure: Pre-Anesthesia Assessment: - ASA Grade Assessment: II - A patient with mild systemic disease. - After reviewing the risks and benefits, thepatient was deemed in satisfactory condition to undergo the procedure. After I obtained informed consent, the scope was passed under direct vision. Throughout theprocedure, the patient's blood pressure, pulse, and oxygen saturations were monitored continuously.The Colonoscope was introduced through the anus and advanced to the cecum, identified by appendiceal orifice and ileocecal valve. The colonoscopy was performed without difficulty. The patient tolerated the procedure well. The quality of the bowel preparation was good. Findings: The entire examined colon appeared normal on direct and retroflexion views. Procedure Code(s): --- Professional --- G0121, Colorectal cancer screening; colonoscopy on individual not meeting criteria for high risk Diagnosis Code(s): --- Professional --- Z12.11, Encounter for screening for malignantneoplasm of colon CPT copyright 2020 [employer]. All rights reserved. The codes documented in this report are preliminary and upon dental technician instructor reviewmay be revised to meet current compliance requirements. Lenin Riddle MD 09/04/2024 1:50:40 PM This report has been signed electronically.Lenin Riddle MD Number of Addenda: 0 Note Initiated On: 09/04/2024 1:29 PM Scope In: Scope Out: Endoscopy Department at [facility] - [address] [place] [id number] IMPRESSION: - The entire examined colon is normal on direct and retroflexion views. - No specimens collected. Recommendation: - Discharge patient to home. - Resume previous diet. - Continue present medications. - Repeat colonoscopy in 10 years forsurveillance. - Return to GI office PRN. Lenin Riddle MD GI~PROCEDURE ORDERABLES Final Result * (ABNORMAL) MG Mammo Digital Screening w Tha bilat (06/10/2024 10:22 AM EDT) Anatomical Region Laterality Modality Breast Bilateral Mammography 06/10/2024 2:43 PM EDT Impressions 06/10/2024 3:02 PM EDT New or increasing oval right breast mass in the 1 o'clock position 8 cm from the right nipple. Recommend targeted right breast ultrasound Departmental staff will facilitate scheduling ASSESSMENT: BI-RADS 0: INCOMPLETE - need additional imaging evaluation and/or prior mammograms for comparison RECOMMENDATION(S): 1: Ultrasound follow-up RIGHT with attention to the 1 o'clock position 8 cm from the right nipple [facility]amm[facility] location: [facility] at [address], [address] -------- FINAL REPORT -------- Dictated By: Blade Castellanos Dictated Date: 06/10/2024 14:43 ET Assigned Physician: Blade Castellanos Reviewed and Electronically Signed By: Blade Castellanos Signed Date: 06/10/2024 15:02 ET Workstation ID: [id number] Transcribed By: Self Edit Transcribed Date: 06/10/2024 14:48 ET Narrative 06/10/2024 3:02 PM EDT EXAM: SCREENING MAMMOGRAPHY, BILATERAL HISTORY: SCREENING. No additional history. COMPARISON: 04/27/2022, 04/17/2021, 04/15/2020 TECHNIQUE: Synthesized CC and MLO projections of each breast. Tomosynthesis of each breast in the CC and MLO projections. ADDITIONAL IMAGING: None Computer-aided detection was employed with the [employer] AI 3-D. TISSUE DENSITY: There are scattered areas of fibroglandular density. (BI-RADS category B) FINDINGS: RIGHT BREAST: There is a circumscribed 1 cm oval mass with a lobular margin in the 1 o'clock position 8 cm from the right nipple. I cannot confirm stability. Multiple additional small circumscribed equal density masses with typically benign features. LEFT BREAST: No suspicious mass. No suspicious calcification. No distortion. Multiple circumscribed equal density small oval masses with typically benign features. Procedure Note Blade Castellanos MD - 06/10/2024 EXAM: SCREENING MAMMOGRAPHY, BILATERAL HISTORY: SCREENING. No additional history. COMPARISON: 04/27/2022, 04/17/2021, 04/15/2020 TECHNIQUE: Synthesized CC and MLO projections of each breast.Tomosynthesis of each breast in the CC and MLO projections. ADDITIONAL IMAGING: None Computer-aided detection was employed with the [employer] AI 3-D. TISSUE DENSITY: There are scattered areas of fibroglandular density.(BI-RADS category B) FINDINGS: RIGHT BREAST: There is a circumscribed 1 cm oval mass with a lobular margin in the 1o'clock position 8 cm from the right nipple. I cannot confirm stability. Multiple additional small circumscribed equal density masses withtypically benign features. LEFT BREAST: No suspicious mass. No suspicious calcification. No distortion. Multiplecircumscribed equal density small oval masses with typically benignfeatures. IMPRESSION: New or increasing oval right breast mass in the 1 o'clock position 8 cmfrom the right nipple. Recommend targeted right breast ultrasound Departmental staff will facilitate scheduling ASSESSMENT: BI-RADS 0: INCOMPLETE - need additional imaging evaluation and/or priormammograms for comparison RECOMMENDATION(S): 1: Ultrasound follow-up RIGHT with attention to the 1 o'clock position 8cm from the right nipple [facility]amm[facility] location[facility] at [address], [address] -------- FINAL REPORT -------- Dictated By: Blade Castellanos Dictated Date: 06/10/2024 14:43 ET Assigned Physician: Blade Castellanos Reviewed and Electronically Signed By: Blade Castellanos Signed Date: 06/10/2024 15:02 ET Workstation ID: [id number] Transcribed By: Self Edit Transcribed Date: 06/10/2024 14:48 ET us Alphonso Antunez NP IMG BI PROCEDURES Final Re sult * Pap smear (06/15/2021) 06/15/2021 Narrative HISTORICAL TESTING LAB RESULTING AGENCY - 06/26/2021 7:26 AM EDT [id number] THINPREP PAP, IMAGED: NEGATIVE FOR SQUAMOUS INTRAEITHELIAL LESION AND MALIGNANCY. NOTE: THE PAP TEST IS A SCREENING TEST WITH AN INHERENT FALSE NEGATIVE RATE. AUTOMATED PRESCREENING OF ALL LIQUID BASED SPECIMENS IS PERFORMED BY THE THINPREP IMAGING SYSTEM UNLESS OTHERWISE STATED. SAMAN CRUZ(ASCP) (CASE ELECTRONICALLY SIGNED 06 24 2021) RESULT OF APTIMA HIGH RISK HPV ASSAY: HIGH RISK HPV: NEGATIVE (SEROTYPES 16,18,31,33,35,39,45,51,52,56,58,59,66,68) COMPLETED ON 2021-06-16 ADEQUACY: SATISFACTORY ENDOCERVICAL/TRANSFORMATION ZONE COMPONENT PRESENT. SOURCE: THINPREP PAP HPV ANY DX: REFLEX 16 AND 18, CERVICAL, IMAGED CLINICAL INFORMATION: HPV ANY DIAGNOSIS. HORMONES, PAP HX NEGATIVE 2017, LMP 05/25/2021. Z12.4, Z01.419 us Keysha García [facility] [facility] CYTOLOGY ORDERABLES Final Result HISTORICAL TESTING LAB RESULTING AGENCY from Last 3 Months or Most Recently Relevant to Health Maintenance Insurance [facility] Care Teams Hide Puller Relationship Specialty Start Date End Date Alphonso Antunez NP [address] [place] [address] PCP - General Nurse Practitioner 06/02/24
== END 2025-01-15 14:52 | disposition home or self-care (01) ==
LOC: HO.HOSX 14:51
PROVIDERS: Visit Provider Physical Medicine & Rehabilitation
DX: M51.362 Other intervertebral disc degeneration, lumbar region with discogenic back pain and lower extremity pain (principal)
CPT/HCPCS: 72100; 99202